=== PATIENT | female | born 1970 | race Caucasian/White ===

== ENCOUNTER 2016-11-25 09:25 | Emergency (ER) | payer BC ==
[~2016-11-25] VITALS: Ht 160 cm; Wt 80.0 kg
[2016-11-25 09:27] VITALS: BP 234/98; PULSE 50; RESP 18; TEMP 98.1; O2SAT 95
[2016-11-25 09:48] VITALS: BP 183/92
[2016-11-25] MEDS ORDERED: SODIUM CHLOR 0.9% 1000 ML INJ 1,000 ML IV SCH (09:48)
[2016-11-25] MEDS ORDERED: SODIUM CHLORIDE 0.9% FLUSH 10 ML FLUSH IVF PRN (10:00)
[2016-11-25] MEDS ORDERED: PANTOPRAZOLE SODIUM 40 MG VIAL IVP ONE (10:00)
[2016-11-25] MEDS ORDERED: ONDANSETRON HCL 4 MG/2 ML VIAL IVP ONE (10:00)
[2016-11-25 10:01] VITALS: O2SAT 96
[2016-11-25 10:23] LABS: BASOPHIL # 0.1 TH/MM3 (0-0.2); EOSINOPHIL % 0.2 % (0.0-4.0); HEMATOCRIT 49.6 % (35.0-46.0); HEMO FLAGS DIFF FINAL; LYMPH % 12.6 % (9.0-44.0); LYMPHOCYTE # 1.5 TH/MM3 (1.0-4.8); MEAN CELL VOLUME 90.5 FL (80.0-100.0); MEAN CORPUSCULAR HEMOGLOBIN 30.3 PG (27.0-34.0); MEAN CORPUSCULAR HGB CONC 33.5 % (32.0-36.0); MONO % 2.5 % (0.0-8.0); NEUT % 83.7 % (16.0-70.0); PLATELET COUNT 337 TH/MM3 (150-450); RED BLOOD COUNT 5.48 MIL/MM3 (4.00-5.30); RED CELL DISTRIBUTION WIDTH 14.8 % (11.6-17.2); WHITE BLOOD COUNT 11.9 TH/MM3 (4.0-11.0)
--- NOTE | 2016-11-25 10:24 | PD ---
HPI Chief Complaint: GI Complaint Time Seen by Provider: 09:43 Travel History International Travel<30 days: No Contact w/Intl Traveler<30days: No Traveled to known affect area: No History of Present Illness HPI Patient is a 46-year-old female here with complaint of nausea vomiting diarrhea. Starting approximately 30 hours ago patient woke up at 1 in the morning with crampy abdominal discomfort, diffuse. Associated nausea vomiting diarrhea. She states that the vomiting is worse and she's had intractable vomiting, states that "I have nothing left to throw up anymore" and now just complains of dry heaving. 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 Diarrhea is loose and frankly watery, but certainly less frequent than the vomiting. No hematochezia. She denies any fevers, chills. Patient is traveling from [place] but denies any recent abnormal food ingestion, raw or undercooked meat, seafood, sushi, etc. PFSH Past Medical History Cardiovascular Problems: Yes Diabetes: Yes Patient Takes Glucophage: No Gastrointestinal Disorders: Yes (eliezer-zuniga ) Hypertension: Yes (non-compliant with meds) Musculoskeletal: Yes (DJD) ?: Not Past Surgical History Section: Yes (x3) Cholecystectomy: Yes Hysterectomy: Yes Social History Alcohol Use: No Tobacco Use: Yes (1 ppd) Allergies-Medications (Allergen,Severity, Reaction): Coded Allergies: No Known Allergies (Unverified , 11/25/16) Reported Meds & Prescriptions Reported Meds & Active Scripts Active No Active Prescriptions or Reported Medications Review of Systems Except as stated in HPI: all other systems reviewed are Neg Physical Exam Narrative GENERAL: Well-appearing female in no acute distress SKIN: Focused skin assessment warm/dry. HEAD: Normocephalic. EYES: No scleral icterus. No injection or drainage. ENT: Mucous membranes pink and moist. NECK: Supple CARDIOVASCULAR: Regular rate and rhythm. No murmur appreciated. RESPIRATORY: No accessory muscle use. Clear to auscultation. Breath sounds equal bilaterally. GASTROINTESTINAL: Abdomen soft, periumbilical and epigastric abdominal tenderness palpation without rebound or guarding, nondistended MUSCULOSKELETAL: Normal gait NEUROLOGICAL: Awake and alert. Normal speech. PSYCHIATRIC: Appropriate mood and affect; insight and judgment normal. Data Data Last Documented VS Vital Signs Date Time Temp Pulse Resp B/P Pulse Ox O2 Delivery O2 Flow Rate FiO2 11/25/16 10:39 55 176/83 11/25/16 10:01 96 Room Air 11/25/16 09:27 98.1 18 Orders Complete Blood Count With Diff (11/25/16 09:48) Comprehensive Metabolic Panel (11/25/16 09:48) Lipase (11/25/16 09:48) Ecg Monitoring (11/25/16 09:48) Iv Access Insert/Monitor (11/25/16 09:48) Oximetry (11/25/16 09:48) Ondansetron Inj (Zofran Inj) (11/25/16 10:00) Pantoprazole Inj (Protonix Inj) (11/25/16 10:00) Sodium Chlor 0.9% 1000 Ml Inj (Ns 1000 M (11/25/16 09:48) Sodium Chloride 0.9% Flush (Ns Flush) (11/25/16 10:00) Diphenhydramine Inj (Benadryl Inj) (11/25/16 11:00) Metoclopramide Inj (Reglan Inj) (11/25/16 11:00) Sodium Chlor 0.9% 1000 Ml Inj (Ns 1000 M (11/25/16 10:51) Labs Laboratory Tests Test 11/25/16 10:05 White Blood Count 11.9 TH/MM3 Red Blood Count 5.48 MIL/MM3 Hemoglobin 16.6 GM/DL Hematocrit 49.6 % Mean Corpuscular Volume 90.5 FL Mean Corpuscular Hemoglobin 30.3 PG Mean Corpuscular Hemoglobin 33.5 % Concent Red Cell Distribution Width 14.8 % Platelet Count 337 TH/MM3 Mean Platelet Volume 9.5 FL Neutrophils (%) (Auto) 83.7 % Lymphocytes (%) (Auto) 12.6 % Monocytes (%) (Auto) 2.5 % Eosinophils (%) (Auto) 0.2 % Basophils (%) (Auto) 1.0 % Neutrophils # (Auto) 10.0 TH/MM3 Lymphocytes # (Auto) 1.5 TH/MM3 Monocytes # (Auto) 0.3 TH/MM3 Eosinophils # (Auto) 0.0 TH/MM3 Basophils # (Auto) 0.1 TH/MM3 CBC Comment DIFF FINAL Differential Comment Sodium Level 139 MEQ/L Potassium Level 3.8 MEQ/L Chloride Level 104 MEQ/L Carbon Dioxide Level 28.9 MEQ/L Anion Gap 6 MEQ/L Blood Urea Nitrogen 10 MG/DL Creatinine 0.95 MG/DL Estimat Glomerular Filtration 63 ML/MIN Rate Random Glucose 141 MG/DL Calcium Level 9.9 MG/DL Total Bilirubin 0.6 MG/DL Aspartate Amino Transf 22 U/L (AST/SGOT) Alanine Aminotransferase 37 U/L (ALT/SGPT) Alkaline Phosphatase 79 U/L Total Protein 8.7 GM/DL Albumin 4.4 GM/DL Lipase 96 U/L [facility] Medical Decision Making Medical Screen Exam Complete: Yes Emergency Medical Condition: Yes Medical Record Reviewed: Yes Differential Diagnosis 46-year-old female with history of Eliezer-Zuniga tear here with complaint of intractable nausea, vomiting and associated diarrhea 30 hours. Differential includes gastritis, pancreatitis, peptic ulcer disease, hepatobiliary pathology , gastroenteritis, and less likely bowel obstruction. Notably hypertensive, admits to be noncompliant with her antihypertensives, improved upon recheck. Narrative Course Patient placed on monitor, IV established and blood obtained. Blood pressure improved upon recheck. Given 1 L normal saline bolus, 4 mg Zofran, IV PPI. CBC , CMP, lipase notable for hemoglobin 16.6 likely due to hemoconcentration from dehydration, otherwise unremarkable. Patient was unable to tolerate oral challenge after the above. Given second 1 L normal saline bolus, 50 mg Benadryl , 10 mg Reglan. Patient is feeling improved, still slightly nauseated but now able to tolerate liquids. Diagnosis Primary Impression: Gastroenteritis Referrals: Primary Care Physician as needed Patient Instructions: Gastroenteritis (ED), General Instructions Additional Instructions: Zofran and Phenergan as needed for nausea, vomiting. Med/Other Pt SpecificInfo: Prescription(s) given Scripts Promethazine Supp (Phenergan Supp)25 Mg Supp25 Mg RECTAL Q4H PRN (NAUSEA OR VOMITING) #10 SUPP Ref 0 Prov:Jodi Duran MD 11/25/16 Ondansetron Odt (Zofran Odt)8 Mg Tab8 Mg SL Q8H PRN (NAUSEA OR VOMITING) #10 TAB Ref 0 Prov:Jodi Duran MD 11/25/16 Disposition: 01 DISCHARGE HOME Condition: Stable Jodi Duran MD Nov 25, 2016 10:24
[2016-11-25 10:36] LABS: ALT (GPT) 37 U/L (10-53); ANION GAP 6 MEQ/L (5-15); AST (GOT) 22 U/L (15-37); BICARBONATE 28.9 MEQ/L (21.0-32.0); BLOOD UREA NITROGEN 10 MG/DL (7-18); CHLORIDE 104 MEQ/L (98-107); GLOMERULAR FILTRATION RATE 63 ML/MIN (>89); POTASSIUM 3.8 MEQ/L (3.5-5.1); SODIUM (NA) 139 MEQ/L (136-145)
[2016-11-25 10:39] VITALS: BP 176/83; PULSE 55
[2016-11-25 10:39] LABS: ALKALINE PHOSPHATASE 79 U/L (45-117); TOTAL BILIRUBIN ADULT 0.6 MG/DL (0.2-1.0)
[2016-11-25] MEDS ORDERED: SODIUM CHLOR 0.9% 1000 ML INJ 1,000 ML IV ONE (10:51)
[2016-11-25] MEDS ORDERED: METOCLOPRAMIDE HCL 10 MG/2 ML VIAL IVP ONE (11:00)
[2016-11-25] MEDS ORDERED: diphenhydrAMINE HCL 50 MG/ML VIAL IVP ONE (11:00)
[2016-11-25] MEDS ORDERED: ZOFR8TAB4 SL (12:22)
[2016-11-25] MEDS ORDERED: PROM1SUP7 RECTAL (12:22)
== END 2016-11-25 13:16 | disposition home or self-care (01) ==
LOC: EDBD → NEPD 09:25
DX: K52.9 Noninfective gastroenteritis and colitis, unspecified (principal); I10 Essential (primary) hypertension; E11.9 Type 2 diabetes mellitus without complications; F17.210 Nicotine dependence, cigarettes, uncomplicated; Z91.14 Patient's other noncompliance with medication regimen
CPT/HCPCS: 80053; 83690; 85025; 96361; 96374; 96375; 99284; C9113; J1200; J2405; J2765; J7030